=== PATIENT | male | born 1950 | race Caucasian/White ===

== ENCOUNTER 2025-08-12 03:41 | Emergency (ER) | payer OTHER | END 2025-08-12 08:42 | LOC: NAV ERS 03:41 → EEVIPCON 03:41 → NAV ERS 08:42 | DX: S51.012A Laceration without foreign body of left elbow, initial encounter (principal); S20.212A Contusion of left front wall of thorax, initial encounter; Z87.891 Personal history of nicotine dependence; W01.10XA Fall on same level from slipping, tripping and stumbling with subsequent striking against unspecified object, initial encounter | CPT/HCPCS: 70450; 72125 ==